=== PATIENT | female | born 2000 | race Caucasian/White ===

== ENCOUNTER 2020-04-02 13:15 | Outpatient (CLI) | payer BC, SELFPAY ==
--- NOTE | ~2020-04-02 | US_ITS ---
EXAMINATION: US thyroid DATE: 04/02/2020 13:52 INDICATION: Hypothyroidism. Palpable lump at the right side of the neck. TECHNIQUE: Multiple ultrasound images of the thyroid were obtained. COMPARISON: None. FINDINGS: The right thyroid lobe measures 5.5 x 1.8 x 2.1 cm. The left thyroid lobe measures 6.1 x 1.8 x 2.1 c m. The thyroid isthmus measures 3 mm in thickness. No discrete nodules identified. There is diffuse h eterogeneously decreased echogenicity with coarsened echotexture in a pseudonodular pattern throughou t the thyroid without increased vascular flow on color Doppler. IMPRESSION: 1. Heterogeneous hypoechoic thyroid without increased flow on color Doppler which is suggestive but n ot diagnostic of Suri's thyroiditis. Reviewed, dictated and finalized at location A. IMPRESSION: 1. Heterogeneous hypoechoic thyroid without increased flow on color Doppler whi ch is suggestive but not diagnostic of Suri's thyroiditis.
[2020-04-02 15:43] LABS: Thyroid Stimulating Hormone 0.035 uIU/mL (0.465-4.680); Total Triiodothyronine (T3) 1.55 NG/ML (0.97-1.69)
[2020-04-02 15:52] LABS: Free T4 Free Thyroxine 2.61 ng/mL (0.78-2.19)
[2020-04-05 05:57] LABS: Thyroid Peroxidase Antibodies 1095 IU/mL (<9)
== END 2020-04-02 13:16 | disposition home or self-care (01) ==
PROVIDERS: PCP Family Medicine; Visit Provider Internal Medicine Endocrinology, Diabetes & Metabolism
DX: E03.9 Hypothyroidism, unspecified (principal)
CPT/HCPCS: 36415; 76536; 84439; 84443; 84480; 86376

== ENCOUNTER 2024-09-21 13:35 | Emergency (ER) | payer OTHER, SELFPAY ==
[2024-09-21 13:47] VITALS: BP 101/70; PULSE 107; RESP 16; TEMP 36.4; O2SAT 98
--- NOTE | 2024-09-21 13:55 | ED.URI ---
HPI - URI/Sore Throat General Chief Complaint: Upper Respiratory Infection Stated Complaint: FEVER/RUNNY NOSE/COUGH/SORE THROAT/BODY ACHES Time Seen by Provider: 09/21/24 13:55 Source: patient Mode of arrival: ambulatory Limitations: no limitations History of Present Illness HPI Narrative: 24-year-old female presents with complaint of fatigue, body aches, fever, cough, congestion for 3 days. Taking Tylenol and Sudafed to treat symptoms. Denies nausea vomiting diarrhea. No chest pain or shortness of breath. All systems reviewed and negative except as noted above. Related Data Allergies Allergy/AdvReac Type Severity Reaction Status Date / Time No Known Allergies Allergy Verified 09/21/24 13:51 Review of Systems Review of Systems: CONSTITUTIONAL: Reports fever, chills, or sweats. EYES: Denies visual changes, redness, or discharge. ENT: Reports rhinorrhea, congestion, sore throat. Denies otalgia. CARDIOVASCULAR: Denies chest pain, palpitations, or edema. RESPIRATORY: Reports cough. Denies dyspnea. GASTROINTESTINAL: Denies abdominal pain, nausea, vomiting, or diarrhea. GENITOURINARY: Denies dysuria or hematuria. SKIN: Denies rash or itching. MUSCULOSKELETAL: Denies back pain, joint pain, or myalgia. NEUROLOGIC: Denies headache, numbness, or weakness. PSYCHIATRIC: Denies anxiety or depression. All other systems reviewed are negative, except as documented in HPI. PMFSH Family History Family History Father Diabetes mellitus Depression Family history of alcoholism Grandparent Family history of arthritis Family history of Alzheimer's disease Family history of hearing loss Other Family history of lung cancer Family history of malignant neoplasm of kidney Family history of mental disorder Social History Social History Smoking status: Never smoker Alcohol intake: current Comments At time of signature, agree with nursing past medical, surgical, social and family history. There is no relevant family history pertinent to the presenting complaint. Exam Narrative: GENERAL: This is a well-nourished, well-developed patient, ill-appearing but in no acute distress HEAD: normocephalic, atraumatic. EYES: PERRL. Sclera clear/white. Vision is grossly intact. EARS: External ears normal, auditory canals clear and without drainage, TMs normal without perforation. Hearing grossly intact. NOSE: External nose normal with clear nasal drainage, mild congestion. THROAT: Mucous membranes moist, posterior pharynx clear. NECK: Neck supple, non-tender without lymphadenopathy, masses or thyromegaly. CARDIOVASCULAR: Regular rate and rhythm without murmurs, gallops, or rubs. RESPIRATORY: Clear to auscultation. Breath sounds equal bilaterally. No wheezes, rales, or rhonchi. SKIN: warm, Dry, intact with no suspicious lesions or rash, good texture and turgor. NEURO: awake, alert, and oriented to person, place and time. There were no obvious focal neurologic abnormalities. EXTREMITIES: No joint tenderness, effusion, or edema noted. Course Course Level of Care: Express Care Visit Vital Signs Vital signs: Vital Signs Temperature 36.4 C 09/21/24 13:47 Pulse Rate 107 H 09/21/24 13:47 Respiratory Rate 16 09/21/24 13:47 Blood Pressure 101/70 09/21/24 13:47 Pulse Oximetry 98 09/21/24 13:47 Temperature 36.4 C 09/21/24 13:47 Pulse Rate 107 H 09/21/24 13:47 Respiratory Rate 16 09/21/24 13:47 Blood Pressure 101/70 09/21/24 13:47 Pulse Oximetry 98 09/21/24 13:47 Reviewed MDM - URI/Sore Throat MDM Narrative Medical decision making narrative: Positive influenza a. Lungs clear to auscultation. Patient alert, nontoxic. Recommend [id number] medications to treat viral symptoms. Please be advised this is a medical document. It is intended for [id number] communication. It is written in medical language and may contain unfamiliar abbreviations or verbiage. Medical documents are intended to carry relevant information, facts as evident, and the clinical opinion of the practitioner at the time of the encounter. This report may have been done utilizing a voice recognition system. Attempts have been made to correct errors. However, there may be uncorrected grammatical, spelling, and recognition errors present. The file time of this note does not necessarily represent the time of service. Discharge Plan Discharge Clinical Impression: Influenza A Patient Disposition: Home, Self-Care Condition: Stable Instructions: Influenza (ED) Additional Instructions: You were positive for influenza today. Influenza is a virus and symptoms may last 10-14 days. Take [id number] medications to treat her symptoms such as DayQuil NyQuil cold and flu. Take as directed on packaging. Take ibuprofen every 6-8 hours as needed for pain and fever. Drink plenty water and rest. Follow-up with your primary care physician if symptoms are not improving. Patient Language: Slovenian Prescriptions: No Action levothyroxine 125 mcg tablet 125 mcg PO DAILY 30 Days Qty: 30 6RF Follow-up/Referrals: Courtney Villalta MD [Primary Care Provider] - Stand Alone Forms: Work/School Release IP Time of Disposition: 14:02
[2024-09-21 13:58] LABS: EDCOVIDSCREEN Negative (Negative); EDINFLUASCREEN Positive (Negative); EDINFLUBSCREEN Negative (Negative)
== END 2024-09-21 14:07 | disposition home or self-care (01) ==
PROVIDERS: Emergency Provider Nurse Practitioner Family; PCP Family Medicine
DX: J10.1 Influenza due to other identified influenza virus with other respiratory manifestations (principal); Z20.822 Contact with and (suspected) exposure to COVID-19
CPT/HCPCS: 87426; 87804; 99212; G0463